=== PATIENT | male | born 1975 | race African-American/Black ===

== ENCOUNTER 2016-08-31 16:26 | Emergency (ER) | payer OTHER ==
[2016-08-31 16:30] VITALS: TEMP 98.1; BMI 26.1
[2016-08-31] MEDS ORDERED: SODIUM CHLORIDE 1,000 ML IV STA (17:25)
--- NOTE | 2016-08-31 17:27 | PDOC ---
[id number] No Limitations - History of Present Illness Initial Comments: 08/31/16 17:48 The patient is a 40 year old male with no significant PMHx who presents to the ED with intermittent left sided abdominal pain since yesterday. Patient states that the pain is severe, and that when he experiences the pain, he sits still to alleviate it. It comes and goes. He denies pain currently. He denies nausea, vomiting, diarrhea, constipation. He denies fever, chills, urinary complaints, headache, chest pain, SOB. He denies tobacco or drug use. <Katerin Tijerina - Last Filed: 08/31/16 17:48> <Joanne Henry - Last Filed: 08/31/16 20:49> <Fred Forbes - Last Filed: 09/05/16 16:26> - General Chief Complaint: Pain Stated Complaint: SIDE PAIN Time Seen by Provider: 08/31/16 17:06 Past History <Katerin Tijerina - Last Filed: 08/31/16 17:48> <Joanne Henry - Last Filed: 08/31/16 20:49> - Past Medical History Thyroid Disease: No Other medical history: DENIES. - Psycho/Social/Smoking Cessation Hx Anxiety: No Suicidal Ideation: No Smoking History: Never smoked Hx Alcohol Use: No Drug/Substance Use Hx: No Substance Use Type: None <Fred Forbes - Last Filed: 09/05/16 16:26> - Past Medical History Allergies/Adverse Reactions: Allergies Allergy/AdvReac Type Severity Reaction Status Date / Time No Known Allergies Allergy Verified 08/31/16 16:29 Home Medications: Ambulatory Orders NK [No Known Home Medication] 08/31/16 Review of Systems - Review of Systems Able to Perform ROS?: Yes Comments:: 08/31/16 17:48 CONSTITUTIONAL: Absent: Fever, Chills, Diaphoresis, Generalized Weakness, Malaise, Loss of Appetite HEENT: Absent: Rhinorrhea, Nasal Congestion, Throat Pain, Throat Swelling, Difficulty Swallowing, Mouth Swelling, Ear Pain, Eye Pain, Visual Changes CARDIOVASCULAR: Absent: Chest Pain, Syncope, Palpitations, Irregular Heart Rate, Lightheadedness , Peripheral Edema RESPIRATORY: Absent: Cough, Shortness of Breath, SOB with Exertion, Orthopnea, Wheezing, Stridor, Hemoptysis GASTROINTESTINAL: Present: left sided abdominal pain Absent: Abdominal Distension, Nausea, Vomiting, Diarrhea, Constipation, Melena, Hematochezia GENITOURINARY: Absent: Dysuria, Frequency, Urgency, Hesitancy, Flank Pain, Genital Pain, hematuria MUSCULOSKELETAL: Absent: Myalgia, Arthralgia, Joint Swelling, Back pain, Neck Pain SKIN: Absent: Rash, Itching, Pallor HEMATOLOGIC/IMMUNOLOGIC: Absent: Easy Bleeding, Easy Bruising, Lymphadenopathy, Frequent infections ENDOCRINE: Absent: Unexplained Weight Gain, Unexplained Weight Loss, Heat Intolerance, Cold Intolerance NEUROLOGIC: Absent: Headache, Focal Weakness, Paresthesias, Vertigo, Lightheadedness, Unsteady Gait, Seizure, Mental Status Changes, Incontinence PSYCHIATRIC: Absent: Anxiety, Depression <Katerin Tijerina - Last Filed: 08/31/16 17:48> *Physical Exam - Vital Signs Last Vital Signs Temp Pulse Resp BP Pulse Ox 98.1 F 84 18 137/2 99 08/31/16 16:28 08/31/16 16:28 08/31/16 16:28 08/31/16 16:28 08/31/16 16:28 - Physical Exam Comments: 08/31/16 17:48 GENERAL: The patient is awake, alert, and fully oriented, in no acute distress. HEAD: Normal with no signs of trauma. EYES: Pupils equal, round and reactive to light, extraocular movements intact, sclera anicteric, conjunctiva clear. ENT: Ears normal, nares patent, oropharynx clear without exudates. Moist mucous membranes. NECK: Normal range of motion, supple without lymphadenopathy, JVD, or masses. LUNGS: Breath sounds equal, clear to auscultation bilaterally. No wheezes, and no crackles. HEART: Regular rate and rhythm, normal S1 and S2 without murmur, rub or gallop. ABDOMEN: Very soft, no tenderness on deep palpation, normoactive bowel sounds. Negative [place] sign, negative McBurneys tenderness. No guarding, no rebound. No masses. BACK: No CVA tenderness EXTREMITIES: Normal range of motion, no edema. No clubbing or cyanosis. No cords , erythema, or tenderness. NEUROLOGICAL: Cranial nerves II through XII grossly intact. Normal speech, normal gait. PSYCH: Normal mood, normal affect. SKIN: Warm, Dry, normal turgor, no rashes or lesions noted. <TijerinaMaritzaKaterin A - Last Filed: 08/31/16 17:48> - Vital Signs Last Vital Signs Temp Pulse Resp BP Pulse Ox 98.1 F 84 18 137/2 99 08/31/16 16:28 08/31/16 16:28 08/31/16 16:28 08/31/16 16:28 08/31/16 16:28 <Joanne Henry - Last Filed: 08/31/16 20:49> - Vital Signs Last Vital Signs Temp Pulse Resp BP Pulse Ox 98.1 F 84 18 137/2 99 08/31/16 16:28 08/31/16 16:28 08/31/16 16:28 08/31/16 16:28 08/31/16 16:28 <Fred Forbes - Last Filed: 09/05/16 16:26> ED Treatment Course - LABORATORY CBC & Chemistry Diagram: 08/31/16 17:45 08/31/16 17:45 - ADDITIONAL ORDERS Additional order review: Laboratory Results 08/31/16 08/31/16 17:51 17:45 Sodium 141 Potassium 4.5 Chloride 106 Carbon Dioxide 27 Anion Gap 8 BUN 11 Creatinine 1.0 Creat Clearance w eGFR > 60 Random Glucose 75 Calcium 9.5 Total Bilirubin 0.4 AST 23 ALT 35 Alkaline Phosphatase 71 Total Protein 7.9 Albumin 4.4 Lipase 135 Urine Color [place] Urine Appearance Clear Urine pH 5.0 Ur Specific [place] 1.030 Urine Protein 1+ H Urine Glucose (UA) Negative Urine Ketones Trace H Urine Blood Negative Urine Nitrite Negative Urine Bilirubin Negative Urine Urobilinogen Negative Ur Leukocyte Esterase Negative Urine RBC <1 Urine WBC 3 Ur Epithelial Cells Rare Urine Bacteria Rare Hyaline Casts 30 Urine Mucus Many 08/31/16 17:45 RBC 5.22 MCV 89.2 MCHC 32.8 RDW 13.0 MPV 9.6 Neutrophils % 50.1 Lymphocytes % 38.4 Monocytes % 5.5 Eosinophils % 3.8 Basophils % 2.2 H - Medications Given in the ED: ED Medications Discontinued Medications Generic Name Dose Route Start Last Admin Trade Name Freq PRN Reason Stop Dose Admin Sodium Chloride 1,000 mls @ 1,000 mls/hr 08/31/16 17:25 08/31/16 17:45 Normal Saline - IV 08/31/16 18:24 1,000 mls/hr ASDIR STA Administration <Joanne Henry - Last Filed: 08/31/16 20:49> - LABORATORY CBC & Chemistry Diagram: 08/31/16 17:45 08/31/16 17:45 - RADIOLOGY Radiology Studies Ordered: Category Date Time Status ABDOMEN & PELVIS CT W/O CONTR [CT] Stat CT Scan 08/31/16 17:27 Ordered <Fred Forbes - Last Filed: 09/05/16 16:26> Medical Decision Making - Medical Decision Making 08/31/16 20:49 Patient Name: Dayne Salvador THIS IS A PRELIMINARY REPORT FROM [facility] EXAM: CT abdomen and pelvis noncontrast IMAGES: 482 EXAM DATE AND TIME: 2016-08-31 17:53:11.0 REASON FOR EXAM: Left flank pain. Rule out kidney stone COMPARISON: None. FINDINGS: The kidneys are normal in size without hydronephrosis, nephrolithiasis or perinephric stranding. There are no stones seen along the course of the ureters or within the bladder The unenhanced liver, gallbladder, spleen, pancreas and adrenal glands are grossly normal There is no bowel distention Normal appendix Small umbilical and bilateral inguinal hernias containing fat No free air or free fluid THIS DOCUMENT HAS BEEN ELECTRONICALLY SIGNED <Joanne Henry - Last Filed: 08/31/16 20:49> - Medical Decision Making 09/05/16 16:24 Patient is a healthy young man who presents with intermittent left sided sharp abdominal pain, waxes and wanes, resolves and then returns. There are no urinary sx and no hx of kidney stones. Currently he is pain free. His exam is totally benign with a soft abdomen. His labs and urine are unremarkable. Patient was endorsed to Dr. Henry pending CT results to r/o stone disease or other pathology given the colicy severe pain. <Fred Forbes - Last Filed: 09/05/16 16:26> *DC/Admit/Observation/Transfer - Attestations Scribe Attestion: 08/31/16 17:48 Documentation prepared by Katerin Tijerina, acting as medical front desk specialist for Fred Forbes MD. <Katerin Tijerina - Last Filed: 08/31/16 17:48> - Discharge Dispostion Admit: No <Kristin Henryreen - Last Filed: 08/31/16 20:49> <Fred Forbes - Last Filed: 09/05/16 16:26> Diagnosis at time of Disposition: Abdominal pain - Discharge Dispostion Disposition: HOME Condition at time of disposition: Stable - Referrals Referrals: Jose De Jesus Knott MD [Staff Physician] - Braxton Delgado MD [Staff Physician] - - Patient Instructions Printed Discharge Instructions: DI for Groin Hernia, Hernias: Causes and Treatment Options
[2016-08-31 17:56] LABS: BASOPHIL 2.2 % (0-2.0); EOSINOPHIL 3.8 % (0-4.5); MCH 29.3 pg (25.7-33.7); MCHC 32.8 g/dl (32.0-35.9); MEAN CELL VOLUME 89.2 fl (80-96); MEAN PLT VOLUME 9.6 fl (7.5-11.1); NEUTROPHILS 50.1 % (42.8-82.8); PLATELET COUNT 166 K/MM3 (134-434)
[2016-08-31 18:03] LABS: URINE APPEARANCE CLEAR; URINE BILIRUBIN NEGATIVE (NEGATIVE); URINE BLOOD NEGATIVE (NEGATIVE); URINE COLOR AMBER; URINE GLUCOSE (UA) NEGATIVE (NEGATIVE); URINE KETONE TRACE (NEGATIVE); URINE LEUK ESTERASE NEGATIVE (NEGATIVE); URINE NITRITE NEGATIVE (NEGATIVE); URINE UROBILINOGEN NEGATIVE E.U./dl (0.2-1.0)
[2016-08-31 18:22] LABS: ALBUMIN 4.4 g/dl (3.4-5.0); ANION GAP 8 (8-16); CALCIUM 9.5 mg/dL (8.5-10.1); CO2 27 mmol/L (21-32); GLUCOSE,RANDOM 75 mg/dL (74-106); SGOT/AST 23 U/L (15-37); SGPT/ALT 35 U/L (12-78)
[2016-08-31 18:23] LABS: ALK PHOS 71 U/L (45-117); BILIRUBIN,TOTAL 0.4 mg/dL (0.2-1.0); TOT PROT 7.9 g/dl (6.4-8.2)
[2016-08-31 18:27] LABS: URINE PROTEIN 1+ (NEGATIVE)
[2016-08-31 18:29] LABS: URINE BACTERIA RARE /hpf (NONE SEEN); URINE HYALINE CAST 30 /lpf; URINE MUCUS MANY; URINE RBC <1 /hpf (0-3); URINE WBC 3 /hpf (3-5)
[2016-08-31 21:38] VITALS: BP 129/68; PULSE 81
== END 2016-08-31 21:36 | disposition home or self-care (01) ==
LOC: JER 16:26
PROC: 3E0337Z Introduction of Electrolytic and Water Balance Substance into Peripheral Vein, Percutaneous Approach (ICD-10-PCS; principal; 2016-08-31)
DX: R10.84 Generalized abdominal pain (principal)
CPT/HCPCS: 36415; 74176-TC; 80053; 81003; 81015; 83690; 85025; 96360; 99284-25